=== PATIENT | female | born 1965 | race Caucasian/White ===

== ENCOUNTER 2018-10-10 08:20 | Day surgery (SDC) | payer OTHER ==
[~2018-10-10] VITALS: Ht 162.6 cm; Wt 72.6 kg
[2018-10-10] MEDS ORDERED: MIDAZOLAM 2 MG/2 ML VIAL ONE (10:17)
[2018-10-10] MEDS ORDERED: LIDOCAINE 2% 100 MG/5 ML UJET TP ONE (10:17)
[2018-10-10] MEDS ORDERED: fentaNYL 0.05 MG/ML VIAL ONE (10:17)
== END 2018-10-10 11:45 | disposition home or self-care (01) ==
LOC: MDS 08:20 → MMU 08:26 → MDS 11:45
PROVIDERS: ATTEND Internal Medicine Gastroenterology
DX: K64.8 Other hemorrhoids (principal); K44.9 Diaphragmatic hernia without obstruction or gangrene; K31.89 Other diseases of stomach and duodenum; M19.90 Unspecified osteoarthritis, unspecified site; J45.909 Unspecified asthma, uncomplicated; E66.3 Overweight; K62.5 Hemorrhage of anus and rectum
CPT/HCPCS: 36415; 43239; 45378; 86677; J2250; J3010; J7030